=== PATIENT | male | born 1945 | race Caucasian/White ===

== ENCOUNTER 2021-08-12 20:46 | Inpatient (IN) ==
[2021-08-15] MEDS ORDERED: Acetaminophen 325 MG TABLET PO PRN (22:10)
[2021-08-16] MEDS: *HR* HYDROcodone/Acet 5/325 mg TABLET PO PRN ×6 (00:56→21:20)
[2021-08-16] MEDS: Melatonin 3 MG TABLET PO SCH ×2 (07:39→22:37)
[2021-08-16] MEDS: Aspirin Enteric Coated 325 MG Tablet PO SCH (09:08)
[2021-08-16] MEDS: CarBAMazepine XR (12 hr) 100 MG TAB PO SCH ×2 (09:08→17:55)
[2021-08-16] MEDS: Cholecalciferol (D-3) 1,000 UNIT (25MCG) TABLET PO SCH (09:08)
[2021-08-16] MEDS: Sennosides/Docusate Sodium TABLET PO SCH ×2 (12:16→21:19)
[2021-08-17] MEDS: *HR* HYDROcodone/Acet 5/325 mg TABLET PO PRN ×4 (02:09→21:46)
[2021-08-17 07:25] LABS: Basophils % 0.2 %; Eosinophils # 0.1 K/mcL (0.0-0.6); Eosinophils % 2.3 %; Hematocrit 25.6 % (37.5-50.1); Hemoglobin 8.3 g/dL (12.9-16.9); Immature Granulocytes % 0.7 % (0-4); Lymphocytes # 0.9 K/mcL (0.6-4.6); Lymphocytes % 14.1 %; Mean Corpuscular HGB Conc 32.4 g/dL (31.6-35.5); Mean Corpuscular Hemoglobin 30.7 pg (28.0-33.3); Mean Corpuscular Volume 94.8 fL (83.0-100.0); Mean Platelet Volume 8.7 fL (9.4-12.4); Monocytes # 0.6 K/mcL (0.0-1.3); Monocytes % 10.1 %; Neutrophils # 4.4 K/mcL (1.6-8.9); Platelet Count 361 K/mcL (140-400); Red Cell Distribution Width 16.2 % (11.5-14.5); Segmented Neutrophils % 72.6 %
[2021-08-17 07:39] LABS: BUN/Creatinine Ratio 36 (6-26); Blood Urea Nitrogen 22 mg/dL (8-23); Calcium 8.2 mg/dL (8.6-10.3); Carbon Dioxide 25 mEq/L (23-29); Chloride 101 mEq/L (98-107); Glucose 111 mg/dL (70-105); Osmolality,Calculated 286 (280-300); Potassium 3.7 mEq/L (3.5-5.1); Sodium 136 mEq/L (136-145); eGFR For African Americans > 60 (> 60); eGFR For Non-African Americans > 60 (> 60)
[2021-08-17] MEDS: Cholecalciferol (D-3) 1,000 UNIT (25MCG) TABLET PO SCH (08:49)
[2021-08-17] MEDS: Aspirin Enteric Coated 325 MG Tablet PO SCH (08:49)
[2021-08-17] MEDS: Sennosides/Docusate Sodium TABLET PO SCH ×2 (08:50→21:46)
[2021-08-17] MEDS: CarBAMazepine XR (12 hr) 100 MG TAB PO SCH ×2 (08:53→18:16)
[2021-08-17] MEDS: Melatonin 3 MG TABLET PO SCH (21:46)
[2021-08-18] MEDS: *HR* HYDROcodone/Acet 5/325 mg TABLET PO PRN ×5 (04:02→22:34)
[2021-08-18] MEDS: CarBAMazepine XR (12 hr) 100 MG TAB PO SCH ×2 (08:43→18:00)
[2021-08-18] MEDS: Cholecalciferol (D-3) 1,000 UNIT (25MCG) TABLET PO SCH (08:44)
[2021-08-18] MEDS: Sennosides/Docusate Sodium TABLET PO SCH ×2 (08:44→20:03)
[2021-08-18] MEDS: Aspirin Enteric Coated 325 MG Tablet PO SCH (08:44)
[2021-08-18] MEDS: Melatonin 3 MG TABLET PO SCH (20:02)
[2021-08-19] MEDS: Cholecalciferol (D-3) 1,000 UNIT (25MCG) TABLET PO SCH (09:07)
[2021-08-19] MEDS: Sennosides/Docusate Sodium TABLET PO SCH ×2 (09:08→20:25)
[2021-08-19] MEDS: Aspirin Enteric Coated 325 MG Tablet PO SCH (09:08)
[2021-08-19] MEDS: CarBAMazepine XR (12 hr) 100 MG TAB PO SCH ×2 (09:17→17:14)
[2021-08-19] MEDS: *HR* HYDROcodone/Acet 5/325 mg TABLET PO PRN ×2 (17:14→23:28)
[2021-08-19] MEDS: Melatonin 3 MG TABLET PO SCH (20:25)
[2021-08-20] MEDS: *HR* HYDROcodone/Acet 5/325 mg TABLET PO PRN ×2 (06:24→18:39)
[2021-08-20] MEDS: Aspirin Enteric Coated 325 MG Tablet PO SCH (09:29)
[2021-08-20] MEDS: Sennosides/Docusate Sodium TABLET PO SCH ×2 (09:29→20:20)
[2021-08-20] MEDS: Cholecalciferol (D-3) 1,000 UNIT (25MCG) TABLET PO SCH (09:29)
[2021-08-20] MEDS: CarBAMazepine XR (12 hr) 100 MG TAB PO SCH ×2 (09:36→18:40)
[2021-08-20] MEDS: Melatonin 3 MG TABLET PO SCH (20:20)
[2021-08-21] MEDS: *HR* HYDROcodone/Acet 5/325 mg TABLET PO PRN ×4 (04:02→20:16)
[2021-08-21] MEDS: Aspirin Enteric Coated 325 MG Tablet PO SCH (08:12)
[2021-08-21] MEDS: Cholecalciferol (D-3) 1,000 UNIT (25MCG) TABLET PO SCH (08:12)
[2021-08-21] MEDS: CarBAMazepine XR (12 hr) 100 MG TAB PO SCH ×2 (08:12→18:38)
[2021-08-21] MEDS: Sennosides/Docusate Sodium TABLET PO SCH ×2 (08:12→20:15)
[2021-08-21] MEDS: Melatonin 3 MG TABLET PO SCH (20:16)
[2021-08-22] MEDS: *HR* HYDROcodone/Acet 5/325 mg TABLET PO PRN ×3 (04:56→20:18)
[2021-08-22 07:27] LABS: Basophils % 0.3 %; Eosinophils # 0.1 K/mcL (0.0-0.6); Eosinophils % 1.2 %; Hematocrit 30.2 % (37.5-50.1); Hemoglobin 9.7 g/dL (12.9-16.9); Immature Granulocytes % 0.7 % (0-4); Lymphocytes # 0.8 K/mcL (0.6-4.6); Lymphocytes % 10.7 %; Mean Corpuscular HGB Conc 32.1 g/dL (31.6-35.5); Mean Corpuscular Volume 96.5 fL (83.0-100.0); Mean Platelet Volume 8.5 fL (9.4-12.4); Monocytes # 0.6 K/mcL (0.0-1.3); Monocytes % 7.5 %; Neutrophils # 5.9 K/mcL (1.6-8.9); Platelet Count 509 K/mcL (140-400); Red Blood Count 3.13 M/mcL (4.19-5.50); Red Cell Distribution Width 16.5 % (11.5-14.5); Segmented Neutrophils % 79.6 %; White Blood Count 7.4 K/mcL (4.3-11.1)
[2021-08-22 07:47] LABS: BUN/Creatinine Ratio 28 (6-26); Blood Urea Nitrogen 18 mg/dL (8-23); Calcium 8.7 mg/dL (8.6-10.3); Carbon Dioxide 26 mEq/L (23-29); Chloride 98 mEq/L (98-107); Glucose 111 mg/dL (70-105); Osmolality,Calculated 275 (280-300); Potassium 3.7 mEq/L (3.5-5.1); Sodium 131 mEq/L (136-145); eGFR For African Americans > 60 (> 60); eGFR For Non-African Americans > 60 (> 60)
[2021-08-22] MEDS: Sennosides/Docusate Sodium TABLET PO SCH ×2 (08:42→20:23)
[2021-08-22] MEDS: Aspirin Enteric Coated 325 MG Tablet PO SCH (08:42)
[2021-08-22] MEDS: Cholecalciferol (D-3) 1,000 UNIT (25MCG) TABLET PO SCH (08:42)
[2021-08-22] MEDS: CarBAMazepine XR (12 hr) 100 MG TAB PO SCH ×2 (08:53→16:58)
[2021-08-22] MEDS: Melatonin 3 MG TABLET PO SCH (20:18)
[2021-08-23] MEDS: CarBAMazepine XR (12 hr) 100 MG TAB PO SCH ×2 (07:57→16:41)
[2021-08-23] MEDS: Cholecalciferol (D-3) 1,000 UNIT (25MCG) TABLET PO SCH (07:58)
[2021-08-23] MEDS: Aspirin Enteric Coated 325 MG Tablet PO SCH (07:58)
[2021-08-23] MEDS: *HR* HYDROcodone/Acet 5/325 mg TABLET PO PRN ×2 (07:58→16:41)
[2021-08-23] MEDS: Sennosides/Docusate Sodium TABLET PO SCH ×2 (08:00→20:25)
[2021-08-23] MEDS: Melatonin 3 MG TABLET PO SCH (20:25)
[2021-08-24] MEDS: *HR* HYDROcodone/Acet 5/325 mg TABLET PO PRN ×3 (02:54→18:37)
[2021-08-24] MEDS: Sennosides/Docusate Sodium TABLET PO SCH ×2 (09:15→21:30)
[2021-08-24] MEDS: CarBAMazepine XR (12 hr) 100 MG TAB PO SCH ×2 (09:16→18:27)
[2021-08-24] MEDS: Cholecalciferol (D-3) 1,000 UNIT (25MCG) TABLET PO SCH (09:16)
[2021-08-24] MEDS: Aspirin Enteric Coated 325 MG Tablet PO SCH (09:16)
[2021-08-24] MEDS: Melatonin 3 MG TABLET PO SCH (21:31)
[2021-08-25] MEDS: *HR* HYDROcodone/Acet 5/325 mg TABLET PO PRN (04:39)
[2021-08-25 07:53] VITALS: BP 141/71; PULSE 75; RESP 19; TEMP 97.9; O2SAT 99
[2021-08-25] MEDS: Cholecalciferol (D-3) 1,000 UNIT (25MCG) TABLET PO SCH (10:03)
[2021-08-25] MEDS: Sennosides/Docusate Sodium TABLET PO SCH (10:03)
[2021-08-25] MEDS: CarBAMazepine XR (12 hr) 100 MG TAB PO SCH (10:03)
[2021-08-25] MEDS: Aspirin Enteric Coated 325 MG Tablet PO SCH (10:03)
== END 2021-08-25 13:00 | disposition home health service (06) | DRG 536 ==
LOC: INPPIK 08-15 21:41
PROVIDERS: ADMIT Family Medicine; ATTEND Family Medicine